=== PATIENT | male | born 1940 | race Caucasian/White ===

== ENCOUNTER 2018-08-09 06:18 | Day surgery (SDC) | payer MEDICARE, OTHER, SELFPAY ==
[2018-07-14 08:08] VITALS: BMI 28.8
--- NOTE | 2018-07-14 09:11 | HP_ITS ---
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 Is patient in pain?: No Allergies No Known Allergies Allergy (Unverified 07/14/18 08:09) Medications aspirin 81 mg tablet,delayed release 81 mg PO DAILY 07/14/18 [History Confirmed 07/14/18] atorvastatin 40 mg tablet 40 mg PO DAILY 07/14/18 [History Confirmed 07/14/18] benazepril 5 mg tablet 5 mg PO DAILY 07/14/18 [History Confirmed 07/14/18] cholecalciferol (vitamin D3) 1,000 unit capsule 1,000 unit PO DAILY 07/14/18 [History Confirmed 07/14/18] propranolol 20 mg tablet 20 mg PO BID 07/14/18 [History Confirmed 07/14/18] terazosin 10 mg capsule 10 mg PO DAILY 07/14/18 [History Confirmed 07/14/18] warfarin 3 mg tablet 3 mg PO DAILY 07/14/18 [History Confirmed 07/14/18] [facility] Medical History Anemia (Acute) Arthritis (Acute) Blood in stool (Acute) History of back problems (Acute) Hyperlipidemia (Acute) Right inguinal hernia (Acute) Hypertension (Chronic) Surgical History No history of previous surgery (Acute) Social History Smoking Status: Former smoker alcohol intake: current Alcohol type: wine, hard liquor details: half bottle wine and whiskey every day substance use type: does not use ROS General General: No weight change, appetite, fatigue, colon cancer, breast cancer or weakness HEENT HEENT: No difficulty swallowing, eye injury, eye surgery, swollen glands or hoarseness Endo Endocrine: No thyroid disease, diabetes mellitus, thyroid cancer, Hair loss, heat intolerance or cold intolerance Skin Skin: No rash or changing moles Breast Breast: No left breast lump, right breast lump, nipple discharge, breast pain, abnormal mammogram, abnormal US or breast enlargement Musc Musculoskeletal: Yes back problems and arthritis; no rheumatoid arthritis, gout or joint pain Cardio Cardiovascular: Yes high blood pressure; no murmur, pacemaker, heart disease, atrial fibrillation, heart attack, heart stent, palpitations, shortness of breat with exertion or chest pain Psych Psychiatric: No depression, anxiety or hearing voices Resp Respiratory: Yes shortness of breath, No sleep apnea, No cough, No COPD, No asthma, No emphysema, No wheezing Gastro Gastrointestinal: Yes abdominal pain, No nausea or vomiting, Yes diarrhea, No constipation, Yes blood in stool, No acid reflux, No hemorrhoids, No ulcers, No gallbladder problem, No black,tarry stools [place] Hematologic: Yes blood thinners, Yes blood disorders, Yes bleeding, Yes anemia, No blood clots Neuro Neurologic: No system reviewed and no additional complaints, except as docu, No as per HPI, No abnormal walking, No abnormal hearing, No abnormal movements, No abnormal speech, No behavioral changes, No burning sensations, No confusion, No seizure-like activity, No unsteadiness, No dizziness, No localized weakness, No frequent falls, No headache(s), No lack of coordination, No loss of vision, No memory loss, No numbness, No other visual disturbances, No radiating pain, No restless legs, No sensory deficit, No fainting, No tingling, No tremor(s), No weakness, No other Exam Const General: no acute distress, well developed, well hydrated Orientation: oriented to person, oriented to place, oriented to time [facility] Head: normocephalic, atraumatic Ears: external ears normal Mouth: moist mucous membranes Eyes Sclera: sclerae normal Pupils: normal by confrontation Neck Neck: no lymphadenopathy noted Neck mass: No Thyroid: thyroid normal, symmetrical Chest Chest palpation & inspection: normal inspection of the chest Breast Palpation: No nipple discharge Resp Effort & Inspection: normal respiratory effort Auscultation: clear to auscultation bilaterally Percussion: percussion normal Cardio Rate: regular rate Rhythm: regular rhythm Heart Sounds: no murmurs GI Palpation: soft, no hepatosplenomegaly, no masses, tender Rectal Exam: other Other: A large right inguinal hernia is identified it is reducible. He has a normal left Rectal exam deferred. Extrem General: normal to inspection, no clubbing, cyanosis or edema Assessment & Plan Problems 1. Iron deficiency anemia due to chronic blood loss D50.0 2. Heme + stool R19.5 3. Right inguinal hernia K40.90 Plan I have discussed the above with the patient. I have offered the patient colonoscopy as well as an EGD for evaluation. I have explained the risks/benefits of the procedure and described the procedure. I have discussed the risks with the patient, including but not limited to: infection, bleeding, perforation of the GI tract requiring emergency surgery, inability to complete the procedure, injury to any internal organs, complications of anesthesia, etc. - the patient understands and agrees to proceed. I have answered all the patient's questions to the patient's satisfaction and the patient has no further questions. The patient has been given instructions for the colon cleansing preparation. My plan is to perform a laparoscopic right hernia repair. The planned surgical procedure was discussed extensively with the patient. The risks, benefits, anticipated outcomes and possible complication were mentioned. The patient understands that all hernia repair surgery has a chance of recurrence and/or chronic post-operative pain. My staff has also explained the procedure in understandable terms and the patient was given the option to take printed material concerning the planned procedure. The patient had the opportunity to ask questions concerning the planned procedure. The patient freely consents to the planned procedure. Coding Level of Care Code Off vis,new,level 4 Diagnoses Iron deficiency anemia due to chronic blood loss D50.0 ??Anemia type: iron deficiency ??Iron deficiency anemia type: chronic blood loss Heme + stool R19.5 Right inguinal hernia K40.90
[2018-08-09 06:51] LABS: Prothrombin Time Fingerstick 14.7 SEC (11.9-14.4)
[2018-08-09 07:00] VITALS: BP 151/71; PULSE 46; RESP 16; TEMP 36.2; O2SAT 98; BMI 27.1
--- NOTE | 2018-08-09 07:30 | EGD_PTH ---
PATIENT: JACQUELYN PEARL LOC: EN U#:[id number] AGE/SX: 77/M ROOM: RE08/09/[address]: Dr. Milton Velez MD : 1940 BED: DIS: 08/09/2018 SPEC #: [id number] RECD: 08/09/18 09:28 STATUS: GIDEON DARIUS #: [id number] CHRISTIANO: 08/09/18 07:[address]: Milton Velez DEPT: SURGICAL PATHOLOGY RECD BY: Levi Arroyo ENTERED: 08/09/18 11:18 SP TYPE: EGD BIOPSY OTHR DR: Dr. Jose Barfield MD Tissues: Gastric mucous membrane Procedures: Surgery Specimen Level IV HEADER OPERATION: Colonoscopy, EGD ([facility] [place]) PRE-OP DIAGNOSIS: Iron deficiency anemia; heme-positive stool TISSUE SUBMITTED: Biopsy gastric antrum, H. pylori and path MICROSCOPIC DIAGNOSIS Gastric antrum, biopsy: Mild gastritis. See microscopic description and comment. SJ:pedro 08/10/18 COMMENT The results of immunohistochemistry for Helicobacter pylori will be reported separately ([id number]). MICROSCOPIC DESCRIPTION Slides are reviewed. The specimen shows fragments of gastric mucosa with chronic inflammatory cell infiltrates in the lamina propria consisting of lymphocytes and plasma cells, consistent with mild chronic gastritis. GROSS DESCRIPTION Received in fixative is one container labeled with the patient's name and designated biopsy gastric antrum. The specimen consists of one irregular fragment of light little soft tissue that measures 0.8 x 0.2 x 0.1 cm. The specimen is totally submitted in one cassette. / JACOBO:pedro 08/09/18 TC:5 CPT: 65429
--- NOTE | 2018-08-09 07:30 | IMM_PTH ---
PATIENT: JACQUELYN PEARL LOC: EN U#:[id number] AGE/SX: 77/M ROOM: RE08/09/[address]: Dr. Milton Velez MD : 1940 BED: DIS: 08/09/2018 SPEC #: [id number] RECD: 08/09/18 12:24 STATUS: GIDEON REQ #: [id number] CHRISTIANO: 08/09/18 07:[address]: Milton Velez DEPT: IMMUNOHISTOCHEMISTRY RECD BY: Katerina Btaista ENTERED: 08/09/18 12:25 SP TYPE: IMMUNO OTHR DR: Dr. Jose Barfield MD Tissues: Stomach, NOS Procedures: H Pylori (initial) PHYSICIAN & INSTITUTION [place] [id number] SPECIMEN INFORMATION: Tissue Source: Gastric antrum biopsy Clinical Info: Iron deficiency anemia; heme-positive stool Specimen Number: [id number] CPT code: 98172 METHODOLOGY: Deparaffinized sections of prefer/formalin-fixed tissue or PAP/DQ stained slides are incubated with monoclonal/polyclonal antibodies/oligonucleotide probes. Localization is made via biotin free immunoperoxidase method. Appropriate controls are performed and reacted as expected. Results on target cell population are indicated in the following table: RESULTS: ANTIBODY / CLONE RESULT H Pylori (polyclonal) negative These tests were developed and their performance characteristics determined by [facility]. They may not have been cleared or approved by the U.S. Food and Drug Administration. The FDA has determined that such clearance or approval is not necessary. INTERPRETATION: Gastric antrum, biopsy: Negative for Helicobacter pylori organisms. SJ:pedro 08/10/18
[2018-08-09 07:55] VITALS: BP 100/66; BP 151/71; PULSE 68; RESP 16; TEMP 36.8; O2SAT 93
[2018-08-09 08:00] VITALS: BP 109/74; BP 151/71; PULSE 67; RESP 16; O2SAT 98
--- NOTE | 2018-08-09 08:00 | OP.ENDO_ITS ---
08/09/2018 Jose Barfield Re : Upper GI endoscopy procedure for Jose Barfield This procedure was performed on Thursday, August 09, 2018. My impressions and recommendations are as follows: Impressions : - Normal esophagus. No specimens collected. - Z-line regular, 38 cm from the incisors. - Erythematous mucosa in the prepyloric region of the stomach. Biopsied. - Normal examined duodenum. No specimens collected. Recommendations : - Discharge patient to home. - Resume previous diet. - Continue present medications. - Await pathology results. - Repeat upper endoscopy at appointment to be scheduled for surveillance. - Return to my office in 1 week. My findings are described in the full procedure note, which is enclosed. If I can be of further assistance, please feel free to contact me at Doctor phone number(s): , Fax: [phone], Work: . Sincerely, MD Milton Rivers MD 08/09/2018 8:00:12 AM This report has been signed electronically.
[2018-08-09 08:05] VITALS: BP 115/73; BP 151/71; PULSE 61; RESP 16; O2SAT 94
--- NOTE | 2018-08-09 08:05 | OP.ENDO_ITS ---
08/09/2018 Jose Barfield Re : Colonoscopy procedure for Jose Smith Maganuchesaurav This procedure was performed on Thursday, August 09, 2018. My impressions and recommendations are as follows: Impressions : - Diverticulosis in the sigmoid colon. - Non-bleeding internal hemorrhoids. - The examination was otherwise normal. - No specimens collected. Recommendations : - Discharge patient to home. - Resume previous diet. - Continue present medications. - Repeat colonoscopy in 10 years for screening purposes. - Return to my office in 1 week. My findings are described in the full procedure note, which is enclosed. If I can be of further assistance, please feel free to contact me at Doctor phone number(s): , Fax: [phone], Work: . Sincerely, MD Milton Rivers MD 08/09/2018 8:04:58 AM This report has been signed electronically.
[2018-08-09 08:10] VITALS: BP 119/77; BP 151/71; PULSE 61; RESP 58; TEMP 36.5; O2SAT 94
[2018-08-09 08:38] VITALS: BP 151/71
== END 2018-08-09 08:39 | disposition home or self-care (01) ==
LOC: EN 06:19 → AC 06:22
PROVIDERS: Family Provider Family Medicine; PCP Family Medicine; Referring Provider Family Medicine; Visit Provider Surgery
PROC: 0DJD8ZZ Inspection of Lower Intestinal Tract, Via Natural or Artificial Opening Endoscopic (ICD-10-PCS; CPT 45378; principal; 2018-08-09 07:25)
DX: K29.70 Gastritis, unspecified, without bleeding (principal); K57.30 Diverticulosis of large intestine without perforation or abscess without bleeding; K64.8 Other hemorrhoids; D50.9 Iron deficiency anemia, unspecified; K40.90 Unilateral inguinal hernia, without obstruction or gangrene, not specified as recurrent; M19.90 Unspecified osteoarthritis, unspecified site; E78.00 Pure hypercholesterolemia, unspecified; I10 Essential (primary) hypertension; N40.0 Benign prostatic hyperplasia without lower urinary tract symptoms; Z86.718 Personal history of other venous thrombosis and embolism; Z87.19 Personal history of other diseases of the digestive system; Z79.82 Long term (current) use of aspirin; Z79.01 Long term (current) use of anticoagulants; Z79.899 Other long term (current) drug therapy; Z87.891 Personal history of nicotine dependence
CPT/HCPCS: 43239; 45378; 36416; 85610; 88305; 88342; J7120; J1610; J2405

== ENCOUNTER 2018-08-11 08:48 | Day surgery (SDC) | payer MEDICARE, OTHER, SELFPAY ==
[2018-07-14 08:08] VITALS: BMI 28.8
--- NOTE | 2018-07-14 09:11 | HP_ITS ---
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 Is patient in pain?: No Allergies No Known Allergies Allergy (Unverified 07/14/18 08:09) Medications aspirin 81 mg tablet,delayed release 81 mg PO DAILY 07/14/18 [History Confirmed 07/14/18] atorvastatin 40 mg tablet 40 mg PO DAILY 07/14/18 [History Confirmed 07/14/18] benazepril 5 mg tablet 5 mg PO DAILY 07/14/18 [History Confirmed 07/14/18] cholecalciferol (vitamin D3) 1,000 unit capsule 1,000 unit PO DAILY 07/14/18 [History Confirmed 07/14/18] propranolol 20 mg tablet 20 mg PO BID 07/14/18 [History Confirmed 07/14/18] terazosin 10 mg capsule 10 mg PO DAILY 07/14/18 [History Confirmed 07/14/18] warfarin 3 mg tablet 3 mg PO DAILY 07/14/18 [History Confirmed 07/14/18] [facility] Medical History Anemia (Acute) Arthritis (Acute) Blood in stool (Acute) History of back problems (Acute) Hyperlipidemia (Acute) Right inguinal hernia (Acute) Hypertension (Chronic) Surgical History No history of previous surgery (Acute) Social History Smoking Status: Former smoker alcohol intake: current Alcohol type: wine, hard liquor details: half bottle wine and whiskey every day substance use type: does not use ROS General General: No weight change, appetite, fatigue, colon cancer, breast cancer or weakness HEENT HEENT: No difficulty swallowing, eye injury, eye surgery, swollen glands or hoarseness Endo Endocrine: No thyroid disease, diabetes mellitus, thyroid cancer, Hair loss, heat intolerance or cold intolerance Skin Skin: No rash or changing moles Breast Breast: No left breast lump, right breast lump, nipple discharge, breast pain, abnormal mammogram, abnormal US or breast enlargement Musc Musculoskeletal: Yes back problems and arthritis; no rheumatoid arthritis, gout or joint pain Cardio Cardiovascular: Yes high blood pressure; no murmur, pacemaker, heart disease, atrial fibrillation, heart attack, heart stent, palpitations, shortness of breat with exertion or chest pain Psych Psychiatric: No depression, anxiety or hearing voices Resp Respiratory: Yes shortness of breath, No sleep apnea, No cough, No COPD, No asthma, No emphysema, No wheezing Gastro Gastrointestinal: Yes abdominal pain, No nausea or vomiting, Yes diarrhea, No constipation, Yes blood in stool, No acid reflux, No hemorrhoids, No ulcers, No gallbladder problem, No black,tarry stools [place] Hematologic: Yes blood thinners, Yes blood disorders, Yes bleeding, Yes anemia, No blood clots Neuro Neurologic: No system reviewed and no additional complaints, except as docu, No as per HPI, No abnormal walking, No abnormal hearing, No abnormal movements, No abnormal speech, No behavioral changes, No burning sensations, No confusion, No seizure-like activity, No unsteadiness, No dizziness, No localized weakness, No frequent falls, No headache(s), No lack of coordination, No loss of vision, No memory loss, No numbness, No other visual disturbances, No radiating pain, No restless legs, No sensory deficit, No fainting, No tingling, No tremor(s), No weakness, No other Exam Const General: no acute distress, well developed, well hydrated Orientation: oriented to person, oriented to place, oriented to time [facility] Head: normocephalic, atraumatic Ears: external ears normal Mouth: moist mucous membranes Eyes Sclera: sclerae normal Pupils: normal by confrontation Neck Neck: no lymphadenopathy noted Neck mass: No Thyroid: thyroid normal, symmetrical Chest Chest palpation & inspection: normal inspection of the chest Breast Palpation: No nipple discharge Resp Effort & Inspection: normal respiratory effort Auscultation: clear to auscultation bilaterally Percussion: percussion normal Cardio Rate: regular rate Rhythm: regular rhythm Heart Sounds: no murmurs GI Palpation: soft, no hepatosplenomegaly, no masses, tender Rectal Exam: other Other: A large right inguinal hernia is identified it is reducible. He has a normal left Rectal exam deferred. Extrem General: normal to inspection, no clubbing, cyanosis or edema Assessment & Plan Problems 1. Iron deficiency anemia due to chronic blood loss D50.0 2. Heme + stool R19.5 3. Right inguinal hernia K40.90 Plan I have discussed the above with the patient. I have offered the patient colonoscopy as well as an EGD for evaluation. I have explained the risks/benefits of the procedure and described the procedure. I have discussed the risks with the patient, including but not limited to: infection, bleeding, perforation of the GI tract requiring emergency surgery, inability to complete the procedure, injury to any internal organs, complications of anesthesia, etc. - the patient understands and agrees to proceed. I have answered all the patient's questions to the patient's satisfaction and the patient has no further questions. The patient has been given instructions for the colon cleansing preparation. My plan is to perform a laparoscopic right hernia repair. The planned surgical procedure was discussed extensively with the patient. The risks, benefits, anticipated outcomes and possible complication were mentioned. The patient understands that all hernia repair surgery has a chance of recurrence and/or chronic post-operative pain. My staff has also explained the procedure in understandable terms and the patient was given the option to take printed material concerning the planned procedure. The patient had the opportunity to ask questions concerning the planned procedure. The patient freely consents to the planned procedure. Coding Level of Care Code Off vis,new,level 4 Diagnoses Iron deficiency anemia due to chronic blood loss D50.0 ??Anemia type: iron deficiency ??Iron deficiency anemia type: chronic blood loss Heme + stool R19.5 Right inguinal hernia K40.90
--- NOTE | 2018-08-05 10:27 | EKG12_ITS ---
Test Reason : PRE-OP Blood Pressure : / mmHG Vent. Rate : 044 BPM Atrial Rate : 044 BPM P-R Int : 220 ms QRS Dur : 132 ms QT Int : 490 ms P-R-T Axes : 049 -21 029 degrees QTc Int : 418 ms Marked sinus bradycardia with 1st degree A-V block with occasional Premature ventricular complexes Right bundle branch block Abnormal ECG Confirmed by LINNETTE ANDERSON, SHELTON ([id number]), material expeditor ARSLAN SILVESTRE ([id number]) on 08/09/2018 9:51:06 AM Referred By: Milton Velez Confirmed By:SHELTON ANGLIN MD
[2018-08-05 11:36] LABS: Hematocrit 39.4 % (40-54); Hemoglobin 13.1 g/dl (13.0-16.5); Mean Corp Hgb Conc 33.2 g/gl (32-36); Mean Corpuscular Hgb 30.7 pg (27.0-32.0); Mean Corpuscular Volume 92.3 fL (80-94); Mean Platelet Vol. 10.8 fl (6.2-12.0); Platelet Count 131 K/mm3 (150-450); RBC Distribution Width CV 14.1 % (11.6-14.6); RBC Distribution Width SD 47.5 fl (35.1-43.9); Red Blood Count 4.27 M/mm3 (4.6-6.2); White Blood Count 6.2 K/mm3 (4.4-11.0)
[2018-08-05 11:37] LABS: Scan Indicated on CBC? Y/N NO
[2018-08-05 11:43] LABS: Partial Thromboplast Time 32.2 Seconds (24.1-36.2)
[2018-08-05 12:02] LABS: AST(SGOT) 34 U/L (15-37); Alanine Aminotransfer ALT/SGPT 42 U/L (16-61); Albumin, Serum 3.3 g/dL (3.2-5.0); Alkaline Phosphatase 83 U/L (45-117); Anion Gap 7 (5-15); BUN 22 mg/dL (7-18); BUN/Creat Ratio 14.8 RATIO (10-20); Calcium,Total 8.2 mg/dL (8.5-10.1); Chloride 112 mmol/L (98-107); Creatinine, Serum 1.49 mg/dL (0.70-1.30); EST Glomerular Filtration Rate 48 mL/min (>60); Est Glom Filt Rate - Afr Amer 59 mL/min (>60); Globulin 3.7 g/dL (2.2-4.2); Glucose 114 mg/dL (74-106); Potassium 4.4 mmol/L (3.5-5.1); Sodium Level 142 mmol/L (136-145)
[2018-08-11 09:16] LABS: Prothrombin Time Fingerstick 13.5 SEC (11.9-14.4)
[2018-08-11 09:24] VITALS: BP 153/70; PULSE 42; RESP 16; TEMP 36.3; O2SAT 98; BMI 27.8
[2018-08-11] MEDS: Bupivacaine Mpf 0.5% 30 ML VIAL (12:08)
--- NOTE | 2018-08-11 12:11 | OP.PCM_ITS ---
Problem List (1) Right inguinal hernia Status: Acute Report of Operation Date of Procedure: 08/11/18 Pre-Operative Diagnosis: Right inguinal hernia Post-Operative Diagnosis: Same Surgery/Procedure Performed:: Laparoscopic right inguinal hernia repair with mesh Type of Anesthesia:: General Anesthesiologist: Yaw Dallas Estimated Blood Loss (mL): < 25 cc Fluids Replaced: 100cc lr Description of Procedure: Patient was brought to the operating room. Placed in the supine position. Under excellent general endotracheal the patient and the abdomen was sterilely prepped and draped in the usual fashion. Local was injected supra umbilically. Curvilinear incision was made. Dissection was carried down to the fascia. The fascia was grasped with a [place]. Varies needle was placed inside the abdomen. The abdomen was insufflated to 15 torr. A 10/12 trocar was placed without difficulty. It was flank with 2 #5 trochars both placed under direct visualization without injury to underlying structures. Patient was placed in the head down and rotated to the left. I scored the peritoneum on the right. I dissected down to Chavo's ligament. I dissected the cord and vessel structures free there was a large indirect hernia identified. I dissected further laterally. 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 To Chavo's ligament with a pro-tacker. I tacked it superiorly and laterally with sparing tax. I had excellent hemostasis. I reperitonealized the area covering the mesh completely with a pro-tacker. Inspection of the left side did not reveal any hernias. I saw no adhesions in the abdomen. An ilioinguinal nerve block was performed. I removed the trochars under direct visualization. Umbilical port was closed with [id number] stitch of 0 Vicryl. Skin incisions were closed with septicum stitches of 4-0 Monocryl. Steri-Strips were applied. Sterile dressings were applied. Patient tolerated the procedure well. - Admit VTE Documentation VTE Present on Admission: No VTE Mechan Device Prophylaxis: SCD's VTE Pharm Prophylaxis ordered?: No
--- NOTE | 2018-08-11 12:12 | DCINST_ITS ---
Discharge Diet: Light diet - advance as tolerated Discharge Activity: Return to Normal Activity, May Drive - when you are no longer taking narcotic pain medications., May Shower - with the bandage in place 1-2 days after surgery. Lifting Restrictions: 20 pounds for 8 weeks. Additional Activity Instructions:: Climbing stairs is fine, walking is encouraged. Sitting in bed may be uncomfortable. Sitting up using your lateral muscles (sitting up sideways) is usually more comfortable. Do not drive, work heavy equipment of sign legal documents for 24 hours. If your hernia repair was an ingunial repair, you may have scrotal swelling, an ice pack and/or athletic support can provide more comfort. Pain medications may cause nausea, you should typically eat light foods as you take your pain medications. Pain medications may also cause constipation. If you have difficulty with this, discuss with your doctor. Call your doctor if your incision/area has: Continuous Slow Oozing, Sudden Increased Bleeding, Increased Pain/ Swelling, Increased Redness, Foul Smelling Discharge Call your doctor if you observe: Fever of 101 or Higher Suture Line Care: Avoid Pulling/Pushing, Avoid Pinching/Bending Additional Dressing/Incision Instructions:: Leave the operative bandage on for 2-3 days. When you remove the bandage, leave the steri-strips on place until your follow up appointment or they fall off. Allergies/Adverse Reactions: Allergies Penicillins Allergy (Verified 08/11/18 09:15) Unknown Medications to take at Discharge aspirin 81 mg tablet,delayed release 81 mg PO QHS 07/14/18 atorvastatin 40 mg tablet 40 mg PO QHS 07/14/18 benazepril 5 mg tablet 5 mg PO QHS 07/14/18 cholecalciferol (vitamin D3) 1,000 unit capsule 1,000 unit PO DAILY 07/14/18 propranolol 20 mg tablet 20 mg PO BID 07/14/18 terazosin 10 mg capsule 10 mg PO QHS 07/14/18 warfarin 3 mg tablet 3 mg PO DAILY 07/14/18 Oxycodone HCl/Acetaminophen [Percocet 5/325] 1 - 2 tab PO Q4H PRN PRN 6 Days #30 tab 08/11/18 The following prescriptions were given: Oxycodone HCl/Acetaminophen [Percocet 5/325] 1 - 2 tab PO Q4H PRN PRN 6 Days #30 tab PRN Reason: Pain Orders to be completed after discharge: 12 Lead EKG [CVS] Time Frame: 08/04/18, Facility: [facility], Location: Cardiovascular Services Partial Thromboplast Time Time Frame: 08/04/18, Location: Laboratory Basic Metabolic Profile (BMP) Time Frame: 08/04/18, Location: Laboratory CBC-Complete Blood Cnt No Diff Time Frame: 08/04/18, Location: Laboratory Liver Profile Time Frame: 08/04/18, Location: Laboratory Prothrombin Time w/INR Time Frame: 08/04/18, Location: Laboratory Primary Care Physician: Jose Barfield MD [Primary Care Provider] - Test Results: Test results from this visit will be discussed in further detail at your follow- up appointment, if applicable. Please Follow Up With: Milton Velez MD - [phone] When: Plan to have a follow up appointment in 7 days. Call to schedule.
[2018-08-11 12:26] VITALS: BP 153/70; BP 168/91; PULSE 61; RESP 16; TEMP 36.2; O2SAT 93
[2018-08-11 12:30] VITALS: BP 144/87; BP 153/70; PULSE 48; RESP 16; O2SAT 92
[2018-08-11 12:45] VITALS: BP 139/95; BP 153/70; PULSE 48; RESP 16; TEMP 36.2; O2SAT 96
[2018-08-11] MEDS: oxyCODONE 5 MG Tablet PO (14:42)
[2018-08-11 16:13] VITALS: BP 146/82; BP 153/70; PULSE 47; RESP 16; TEMP 36.8; O2SAT 95
== END 2018-08-11 16:15 | disposition home or self-care (01) ==
LOC: SDC 08:49 → AC 08:49
PROVIDERS: Family Provider Family Medicine; PCP Family Medicine; Referring Provider Surgery; Visit Provider Surgery
PROC: (CPT 49650; principal; 2018-08-11 10:40)
DX: K40.90 Unilateral inguinal hernia, without obstruction or gangrene, not specified as recurrent (principal); E78.5 Hyperlipidemia, unspecified; I10 Essential (primary) hypertension; M19.90 Unspecified osteoarthritis, unspecified site; Z87.891 Personal history of nicotine dependence; D50.0 Iron deficiency anemia secondary to blood loss (chronic); R19.5 Other fecal abnormalities; Z79.899 Other long term (current) drug therapy; Z79.82 Long term (current) use of aspirin; Z79.01 Long term (current) use of anticoagulants; N40.0 Benign prostatic hyperplasia without lower urinary tract symptoms; Z86.718 Personal history of other venous thrombosis and embolism; I45.10 Unspecified right bundle-branch block
CPT/HCPCS: 00840; 49650; 36415; 36416; 80048; 80076; 85027; 85610; 85730; 93005; J7120; C1781; J2405